=== PATIENT | female | born 1950 | race Caucasian/White ===

== ENCOUNTER 2018-03-27 16:22 | Outpatient (CLI) | payer MEDICARE | END 2018-03-27 16:23 | disposition home or self-care (01) | LOC: BICRAD 16:22 | PROVIDERS: ATTEND Internal Medicine Hematology & Oncology | DX: J90 Pleural effusion, not elsewhere classified (principal); C50.112 Malignant neoplasm of central portion of left female breast; C78.01 Secondary malignant neoplasm of right lung; I70.0 Atherosclerosis of aorta; Z98.890 Other specified postprocedural states | CPT/HCPCS: 71046 ==

== ENCOUNTER 2018-04-03 08:00 | Outpatient (CLI) | payer MEDICARE ==
--- NOTE | 2018-04-03 12:06 | PET ---
WHOLE BODY PET CT: Date: 04/03/18 CLINICAL HISTORY: Breast and lung cancer. No prior imaging comparisons are available. TECHNIQUE: There is a slight increased degree of physiologic activity of the regional soft tissues, which somewh at diminishes physiologic uptake of radiotracer, although the exam is diagnostic. FINDINGS: There is diffuse abnormal hypermetabolic activity demonstrated within the neck, chest, abdomen, and p ryan. Patient demonstrates moderate to large bilateral pleural effusions, as well as wedge-shaped pa renchymal consolidation of the right lung, which may be on the basis of a postobstructive atelectasis . There is a hypermetabolic right hilar mass with a SUV of approximately 3.2. There is hypermetabolic right axillary adenopathy up to 7 SUV. Hypermetabolic activity likely related to adenopathy involves the anterior left aspect of the superior mediastinum with SUV of 2.9. There is bilateral hypermetabo lic activity of the ribs, notably of the left 3rd rib laterally and the posterior right 10th rib, as well as a small focus posterior to the posterior aspect of the left 9th rib. There are diffuse hyperm etabolic lesions of the spine involving the C6 region, as well as T12, L1, and L3, with SUV up to michael roximately 3.7. Hypermetabolic activity is seen anteriorly at the left pleural margin, as well as vag ue increased metabolic activity in a plaque-like configuration, small in volume, along the left major fissure. There is bilateral hilar and mediastinal adenopathy with SUV up to 2.6. Foci of increased m etabolic activity within opacity of the region of the right middle lobe measures up to approximately 3.2 SUV. There is a vague, nonspecific focus of mildly increased activity within the posterior segmen t of right hepatic lobe, too small to definitively characterize. There is borderline hypermetabolic l eft retrocrural adenopathy at SUV measurements of 2.5. There are foci of hypermetabolic activity with in osseous structures of the pelvis, most notably at the right acetabular region, 3.2 SUV, as well as involving the proximal left femur. There is evidence of prior left breast surgery. Diffuse vascular disease is present. There are coloni c diverticula. IVC filter is incidentally noted. IMPRESSION: Diffuse foci of hypermetabolic activity as described above, indicating disseminated metastatic diseas e. The primary source may involve the right hilar lesion with associated postobstructive atelectasis of the right lung. There are numerous hypermetabolic lesions involving the skeletal system, as well a s adenopathy. Equivocal finding is present within the posterior segment of right hepatic lobe as abov e. Recommend continued imaging follow-up. POS: [facility]
== END 2018-04-03 08:01 | disposition home or self-care (01) ==
LOC: PET 08:00
PROVIDERS: ATTEND Internal Medicine Hematology & Oncology
DX: C50.919 Malignant neoplasm of unspecified site of unspecified female breast (principal); C34.90 Malignant neoplasm of unspecified part of unspecified bronchus or lung; M89.9 Disorder of bone, unspecified; R59.0 Localized enlarged lymph nodes; J98.11 Atelectasis; R93.5 Abnormal findings on diagnostic imaging of other abdominal regions, including retroperitoneum; R93.8 Abnormal findings on diagnostic imaging of other specified body structures
CPT/HCPCS: 78815; A9552

== ENCOUNTER 2018-04-07 13:53 | Day surgery (SDC) | payer MEDICARE ==
[~2018-04-07 13:53] MED LIST: Gadobenate Dimeglumine 529 MG/1 ML (20ML VIAL) ONE
[2018-04-07] MEDS ORDERED: Lidocaine 1% (PF) 30 ML VIAL ONE (14:29)
--- NOTE | 2018-04-07 15:06 | RAD ---
CHEST ONE VIEW: History: Cardiac arrest. Comparison: 01-25-10 FINDINGS: Cardiac silhouette is magnified and partially obscured by left pleural fluid and basilar atelectasis. Mediastinum remains midline with aortic calcification. Patchy bibasilar infiltrates are present. No evidence of pneumothorax. Metallic clips over the left axilla. IMPRESSION: 1. Left pleural fluid with patchy bibasilar atelectasis. Cause is not apparent. 2. Atherosclerosis. POS: [facility]
[2018-04-07 15:57] LABS: BF Color Yellow; BF RBC Count - Manual 2040 /cumm; BF WBC/Nonhematics Ct. - Manua 2740 /cumm; Body Fluid Source THORACENTESIS FLD; Clarity Hazy (Clear); Tube # EDTA
[2018-04-07 16:01] LABS: Fluid, Triglycerides 30 mg/dL (Not Available); Pleural Fluid, Amylase Less than 30 U/L (Not Available); Pleural Fluid, Glucose 107 mg/dL; Pleural Fluid, LDH 149 U/L (Not Available); Pleural Fluid, Protein 3.4 g/dL
[2018-04-07 16:32] LABS: BF Segmented Neutrophils 2 %; Cell Count Non Hematic 6 %; Lymphocytes 92 %
--- NOTE | 2018-04-07 19:36 | OP ---
DATE OF SERVICE: 04/07/2018 PROCEDURE: Right thoracentesis. PREOPERATIVE DIAGNOSIS: Right pleural effusion. POSTOPERATIVE DIAGNOSIS: Right pleural effusion. ANESTHESIA: 1% lidocaine without epinephrine. DESCRIPTION OF PROCEDURE: The procedure was done in the day stay portion of the hospital. Informed consent was obtained prior to the procedure. The risks included bleeding, infection, and accidental lung puncture. The patient signed the consent form and agreed to proceed. Timeout was taken prior to the procedure. The patient was placed in the upright position. The right posterior hemothorax was cleansed with chl orhexidine and draped sterilely. After the entry site had been identified via ultrasound. The entry site was approximately at 5th-6th interspace at the midscapular line. After local anesthetic had bee n applied, a Ybnv-M-Hmdnegan catheter was placed in the pleural space and approximately 900 mL of amb er/dark colored pleural fluid was removed and sent for appropriate studies. The procedure was tolera shimon well and postoperative x-ray is pending.
--- NOTE | 2018-04-08 09:51 | MRI ---
BRAIN MRI WITH AND WITHOUT CONTRAST: Clinical history: Breast malignancy. Evaluate for metastasis. FINDINGS: There is no ventriculomegaly, mass effect, midline shift, or pathologic intraaxial enhancement. Minim al chronic microvascular ischemic disease is present. No intracranial hemorrhage or acute territorial infarction. Skull base flow voids are maintained. IMPRESSION: 1. No intracranial metastasis evident. 2. No acute intracranial abnormalities. POS: [facility]
== END 2018-04-07 15:29 | disposition home or self-care (01) ==
LOC: SDC/OP 13:53 → EDSTATUS 16:15
PROVIDERS: ATTEND Internal Medicine Critical Care Medicine
PROC: 0W993ZX Drainage of Right Pleural Cavity, Percutaneous Approach, Diagnostic (ICD-10-PCS; principal; 2018-04-07)
DX: C78.01 Secondary malignant neoplasm of right lung (principal); C50.112 Malignant neoplasm of central portion of left female breast; J91.0 Malignant pleural effusion; I10 Essential (primary) hypertension; F32.9 Major depressive disorder, single episode, unspecified; F17.210 Nicotine dependence, cigarettes, uncomplicated; Z88.5 Allergy status to narcotic agent; Z79.82 Long term (current) use of aspirin; Z79.899 Other long term (current) drug therapy; Z17.0 Estrogen receptor positive status [ER+]
CPT/HCPCS: 32554; 70553; 71045; 82150; 82945; 83615; 83986; 84157; 84478; 85060; 87070; 87116; 87205; 87206; 88112; 88305; 89051; A9579; J1642; J2001

== ENCOUNTER 2018-05-06 13:04 | Outpatient (CLI) | payer MEDICARE ==
--- NOTE | 2018-05-06 14:47 | RAD ---
PA AND LATERAL VIEWS CHEST: Date: 05/06/18 HISTORY: Dyspnea. Breast and lung cancer. FINDINGS: The heart size is normal. There are bilateral pleural effusions, right larger than left, with adjacen t consolidation/atelectatic change. No pneumothoraces are seen. There are postop changes in the left axilla. IMPRESSION: Bilateral pleural effusions, right larger than left. POS: [facility]
== END 2018-05-06 13:05 | disposition home or self-care (01) ==
LOC: RAD 13:04
PROVIDERS: ATTEND Internal Medicine Critical Care Medicine
DX: R06.00 Dyspnea, unspecified (principal); J90 Pleural effusion, not elsewhere classified
CPT/HCPCS: 71046

== ENCOUNTER 2018-06-11 13:41 | Outpatient (CLI) | payer MEDICARE ==
--- NOTE | 2018-06-11 14:00 | RAD ---
CHEST TWO VIEWS: HISTORY: Dyspnea. COMPARISON: 05/06/2018 FINDINGS: The cardiac silhouette is slightly obscured by bilateral pleural fluid and patchy bibasilar infiltrat es. The pulmonary vasculature remains engorged. The mediastinum is midline. No evidence of pneumot horax. Metallic clips overly the left axilla. IMPRESSION: Bilateral pleural fluid and other findings are stable. POS: [facility]
== END 2018-06-11 13:42 | disposition home or self-care (01) ==
LOC: RAD 13:41
PROVIDERS: ATTEND Internal Medicine Critical Care Medicine
DX: R06.00 Dyspnea, unspecified (principal)
CPT/HCPCS: 71046

== ENCOUNTER 2018-07-29 12:43 | Outpatient (CLI) | payer MEDICARE | END 2018-07-29 12:44 | disposition home or self-care (01) | LOC: CP 12:43 | PROVIDERS: ATTEND Internal Medicine Critical Care Medicine | DX: J44.9 Chronic obstructive pulmonary disease, unspecified (principal); R06.09 Other forms of dyspnea; J90 Pleural effusion, not elsewhere classified | CPT/HCPCS: 94060; 94727; 94729 ==

== ENCOUNTER 2018-09-15 14:54 | Outpatient (CLI) | payer MEDICARE ==
--- NOTE | 2018-09-15 16:34 | RAD ---
TWO VIEWS CHEST: DATE: 09/15/2018. COMPARISON: 06/30/2018. HISTORY: Shortness of breath. FINDINGS: Small/moderate bilateral pleural effusions are noted, right larger than left. Right pleural effusion is slightly smaller than on the prior examination and left pleural effusion is slightly larger than on the prior exam. There are postoperative clips overlying the left lung base and lateral aspect of the mid left hemithorax. There is no pneumothorax seen. Osseous structures are stable. IMPRESSION: Nonspecific persistent bilateral pleural effusions. This limits evaluation of lung bases. POS: [facility]
== END 2018-09-15 14:55 | disposition home or self-care (01) ==
LOC: RAD 14:54
PROVIDERS: ATTEND Internal Medicine Critical Care Medicine
DX: R06.00 Dyspnea, unspecified (principal); J90 Pleural effusion, not elsewhere classified
CPT/HCPCS: 71046

== ENCOUNTER 2018-09-19 08:20 | Outpatient (CLI) | payer MEDICARE ==
--- NOTE | 2018-09-19 14:58 | PET ---
PET SCAN WITH CT ATTENUATION CORRECTION: HISTORY: Breast cancer with lung and bone metastatic. Patient has undergone chemotherapy and radiation therapy in the past. COMPARISON: 04/03/18. TECHNIQUE: PET scanning with CT attenuation correction is performed from the base of the brain to the proximal t highs following the intravenous administration of 12.8 mCi F18-FDG. FINDINGS: HEAD/NECK: No abnormal FDG localization. CHEST: The previously noted mediastinal and hilar FDG avidity is no longer evident. On the CT used for atten uation correction, moderate bilateral pleural effusions are noted. There is opacification of both low er lobes. Consolidation of the middle lobe is essentially unchanged. The degree of hypermetabolic act ivity noted in the middle lobe, however, has significantly decreased. Minimal residual hypermetabolic activity in the right lower lobe is nonspecific given that the maximum SUV is 1.8. Abnormal FDG localization noted in the right axilla has resolved. ABDOMEN/PELVIS: No abnormal FDG localization. IVC filter is identified. OSSEOUS STRUCTURES: The previously noted multifocal hypermetabolic foci within the osseous structures are no longer seen. CT used for attenuation correction demonstrates multiple sclerotic lesions in the osseous structures suggesting treated metastatic deposits. IMPRESSION: Significant response to therapy. POS: [facility]
== END 2018-09-19 08:21 | disposition home or self-care (01) ==
LOC: PET 08:20
PROVIDERS: ATTEND Internal Medicine Hematology & Oncology
DX: C50.919 Malignant neoplasm of unspecified site of unspecified female breast (principal); C79.51 Secondary malignant neoplasm of bone; C78.00 Secondary malignant neoplasm of unspecified lung
CPT/HCPCS: 78815; A9552

== ENCOUNTER 2019-03-05 13:19 | Outpatient (CLI) | payer MEDICARE ==
--- NOTE | 2019-03-05 16:02 | RAD ---
2 VIEWS CHEST: Date: 03/05/19 COMPARISON: 09/15/18. HISTORY: Dyspnea. FINDINGS: 2 views of the chest show normal sized cardiomediastinal silhouette. There are small bilateral pleura l effusions with adjacent atelectasis. These are unchanged. IMPRESSION: Bilateral pleural effusions. POS: [facility]
== END 2019-03-05 13:20 | disposition home or self-care (01) ==
LOC: RAD 13:19
PROVIDERS: ATTEND Internal Medicine Critical Care Medicine
DX: R06.00 Dyspnea, unspecified (principal); J90 Pleural effusion, not elsewhere classified
CPT/HCPCS: 71046

== ENCOUNTER 2019-05-28 12:36 | Outpatient (CLI) | payer MEDICARE | END 2019-05-28 12:37 | disposition home or self-care (01) | LOC: ULT 12:36 | PROVIDERS: ATTEND Internal Medicine Hematology & Oncology | DX: C50.112 Malignant neoplasm of central portion of left female breast (principal); C78.01 Secondary malignant neoplasm of right lung; C79.51 Secondary malignant neoplasm of bone; I08.3 Combined rheumatic disorders of mitral, aortic and tricuspid valves | CPT/HCPCS: 93306 ==

== ENCOUNTER 2019-06-09 13:37 | Outpatient (CLI) | payer MEDICARE ==
--- NOTE | 2019-06-09 14:15 | RAD ---
CHEST TWO VIEW: 06/09/19 HISTORY: Dyspnea. COMPARISON: Radiograph 03/05/19. FINDINGS: Chronic layering effusions and scarring is similar. Left axillary surgical clips. No acute osseous a bnormality. The cardiac silhouette and mediastinal contours are similar. IMPRESSION: Chronic findings. No acute intrathoracic abnormality. POS: [facility]
== END 2019-06-09 13:38 | disposition home or self-care (01) ==
LOC: RAD 13:37
PROVIDERS: ATTEND Internal Medicine Critical Care Medicine
DX: R06.00 Dyspnea, unspecified (principal)
CPT/HCPCS: 71046

== ENCOUNTER 2019-06-30 13:01 | Outpatient (CLI) | payer MEDICARE ==
--- NOTE | 2019-06-30 14:11 | PET ---
PET CT SKULL TO MID THIGH: COMPARISON: 09/19/[address] HISTORY: Malignant neoplasm of central portion of left female breast. TECHNIQUE: A PET/CT was performed from the skull to the mid thigh after administration of 12.1 millicuries of F- 18 FDG. Evaluation was performed on a [employer] workstation. FINDINGS: NECK: No areas of hypermetabolic activity. CHEST: Bilateral pleural effusions remain. Interstitial prominence of each lung is similar appearing. No ne w hypermetabolic pulmonary parenchymal mass. ABDOMEN/PELVIS: No areas of hypermetabolic activity. SKELETON: Redemonstration of multifocal sclerotic lesions of the regional skeletal structures. There are subtle foci of mild increased metabolic activity involving low thoracic and lumbar vertebrae with maximum SUV of approximately 3.2 at the approximate T11 level involving vertebral body. This is not a signifi cant interval change from prior exam, where maximum SUV was approximately 2.7. At the vertebral body just inferiorly, there is borderline hypermetabolic lesion of 2.7 SUV, not significantly changed from 2.4 SUV on prior exam. . IMPRESSION: 1. Grossly stable exam with borderline to mild hypermetabolic osseous lesions of the lower thoracic/ lumbar spine, as above. 2. Redemonstration of bilateral pleural effusions with interstitial lung disease bilaterally. 3. Recommend continued imaging follow-up. Transcribed Date/Time: 06/30/2019 2:22 PM
== END 2019-06-30 13:02 | disposition home or self-care (01) ==
LOC: PET 13:01
PROVIDERS: ATTEND Internal Medicine Hematology & Oncology
DX: C50.112 Malignant neoplasm of central portion of left female breast (principal); C78.01 Secondary malignant neoplasm of right lung; C79.51 Secondary malignant neoplasm of bone; J90 Pleural effusion, not elsewhere classified; J84.9 Interstitial pulmonary disease, unspecified
CPT/HCPCS: 78815; A9552

== ENCOUNTER 2019-08-11 14:23 | Outpatient (CLI) | payer MEDICARE ==
--- NOTE | 2019-08-11 15:01 | RAD ---
EXAM: Chest 2 views: HISTORY: Dyspnea COMPARISON: 06/09/2019 FINDINGS: There is a normal-sized cardiomediastinal silhouette. There are small bilateral pleural effusions wit h adjacent atelectasis. The bones are unremarkable. IMPRESSION: Small bilateral pleural effusions.
== END 2019-08-11 14:24 | disposition home or self-care (01) ==
LOC: RAD 14:23
PROVIDERS: ATTEND Internal Medicine Critical Care Medicine
DX: R06.00 Dyspnea, unspecified (principal); J90 Pleural effusion, not elsewhere classified
CPT/HCPCS: 71046

== ENCOUNTER 2019-09-08 12:49 | Outpatient (CLI) | payer MEDICARE ==
--- NOTE | 2019-09-08 13:03 | RAD ---
EXAM: Chest 2 views: HISTORY: Dyspnea COMPARISON: 08/11/2019 FINDINGS: There is a normal-sized cardiomediastinal silhouette. There is a small stable bilateral pleural effus ions with adjacent atelectasis. Degenerative changes are seen in the spine. IMPRESSION: Bilateral pleural effusions with adjacent atelectasis
== END 2019-09-08 12:50 | disposition home or self-care (01) ==
LOC: RAD 12:49
PROVIDERS: ATTEND Internal Medicine Critical Care Medicine
DX: R06.00 Dyspnea, unspecified (principal); J90 Pleural effusion, not elsewhere classified; J98.11 Atelectasis
CPT/HCPCS: 71046

== ENCOUNTER 2019-11-02 13:07 | Outpatient (CLI) | payer MEDICARE ==
--- NOTE | 2019-11-02 14:28 | RAD ---
CHEST 2 VIEWS: Date: 11/02/2019 INDICATION: History of dyspnea. COMPARISON: Prior exam dated 09/08/2019. FINDINGS: Chronic lung changes are stable. Small bilateral pleural effusions persist. Heart size is normal. Bonita gical clips in left axillary region are stable appearing. Chronic osseous changes are stable. IMPRESSION: Stable exam. POS: [facility]
== END 2019-11-02 13:08 | disposition home or self-care (01) ==
LOC: RAD 13:07
PROVIDERS: ATTEND Internal Medicine Critical Care Medicine
DX: R06.00 Dyspnea, unspecified (principal)
CPT/HCPCS: 71046

== ENCOUNTER 2019-11-21 23:22 | Inpatient (IN) | payer MEDICARE ==
[2019-11-22] MEDS ORDERED: NS 0.9% w/ 40 MEQ KCL 1,000 ML IV SCH (01:30)
[2019-11-22 01:31] LABS: Bacteria/HPF None Seen HPF (None Seen); Bilirubin Negative (Negative); Blood, Urine Negative (Negative); Clarity Clear (Clear); Glucose, Urine (Dipstick) Normal (Negative); Leukocyte Negative Leu/uL (Negative); Nitrite Negative (Negative); Protein, Urine (Dipstick) 30 mg/dL (Neg-Trace); RBC/HPF 0-3 HPF (0-3); Squamous Epithelial 0-3 HPF (0-3); Urobilinogen Normal mg/dL (Less than 2); WBC/HPF 0-3 HPF (0-3)
[2019-11-22 02:45] VITALS: BMI 28.0
[2019-11-22] MEDS ORDERED: Acetaminophen 325 MG TAB PO PRN (05:30)
[2019-11-22 05:33] LABS: #Lymphocytes 0.2 thou/uL (1.20-3.40); #Monocytes 0.2 thou/uL (0.11-0.59); #Neutrophils 2.4 thou/uL (1.40-6.50); %Basophils 0.3 % (0.0-1.0); %Eosinophils 0.8 % (0.0-10.0); %Lymphocytes 7.4 % (21.0-51.0); %Monocytes 5.9 % (0.0-10.0); %Neutrophils 85.7 % (42.0-75.0); Hemoglobin 9.4 g/dL (12.0-16.0); Mean Corpuscular HGB CONC 34.5 g/dL (32.0-36.0); Mean Corpuscular Hemoglobin 36.6 pg (27.0-31.0); Mean Platelet Volume 8.5 fL (7.4-10.4); Platelet Count 100 thou/uL (130-400); RBC Distribution Width 10.8 % (11.5-14.5); Red Blood Cell (RBC) Count 2.57 mill/uL (4.20-5.40); White Blood Cell (WBC) Count 2.8 thou/uL (4.8-10.8)
[2019-11-22 05:49] LABS: Anion Gap 16 mmol/L (10-20); BUN (Urea Nitrogen) 20 mg/dL (9.8-20.1); Calc. Creatinine Clearance 60 mL/min (70-130); Carbon Dioxide 25 mmol/L (23-31); Chloride 103 mmol/L (98-107); Estimated GFR-MDRD 53; Glucose 79 mg/dL (80-115); Magnesium 1.2 mg/dL (1.6-2.6); Potassium 3.6 mmol/L (3.5-5.1); Sodium 140 mmol/L (136-145)
[2019-11-22] MEDS ORDERED: Magnesium Sulfate 4 GM in Sodium Chloride 0.9% 250 ML 250 ML IVPB SCH (06:00)
--- NOTE | 2019-11-22 08:50 | HP ---
PRIMARY CARE PROVIDER: Dr. Waddell, whom she has been advised as moved. The patient has developed respiratory distress over the past 48 hours. She stated she felt like she was dying. She had a temperature of a 101.8 yesterday morning. She has had chills, sweats with present illness. She notes she had a rash with Levaquin when it was given in the [facility]. She has had positive cough, positive wheezing. PAST MEDICAL HISTORY: Breast cancer diagnosed in 1998, had surgery at that time. She was diagnosed with mets in 2018, is on chemotherapy. She has chronic obstructive pulmonary disease, hypertension, elevated cholesterol, gastroesophageal reflux disease. CURRENT MEDICATIONS: 1. Aspirin 81 mg a day. 2. Omeprazole 40 mg a day. 3. Norvasc 10 mg a day. 4. Ibrance 125 mg a day. 5. Pravachol 40 mg a day. ALLERGIES: CODEINE AND LEVAQUIN, BOTH CAUSED RASH. PAST SURGICAL HISTORY: Inferior vena cava filter in 1998 for deep vein thrombosis, breast cancer surgery on the left breast in 1998. She has had an infertility surgery. FAMILY HISTORY: Negative for breast cancer, coronary artery disease. Her maternal grandmother of an [place]. SOCIAL HISTORY: The patient is . Her son, Derek Cruz who is located in [place], is next of kin. She is DNAR. She smoked for 54 years, quit one year ago. She drinks "lots of vodka" at least one pint a day. REVIEW OF SYSTEMS: CONSTITUTIONAL: No headaches, dizziness, fainting. EYES: No double vision, blurred vision, or flashing lights. EAR, NOSE, AND THROAT: No ear pain or drainage. No nose bleeding. No trouble swallowing. CARDIAC: No chest pain, orthopnea, or paroxysmal nocturnal dyspnea. RESPIRATIONS: Marked shortness of breath, wheezing. Positive cough, nonproductive. GASTROINTESTINAL: No nausea, vomiting, diarrhea, or constipation. GENITOURINARY: No hematuria, dysuria, nocturia. MUSCULOSKELETAL: No pain or swelling in her arms or legs. NEUROLOGICAL: No strokes, seizures, or focal weakness. PSYCHIATRIC: She has anxiety and depression issues, takes Zoloft. SKIN: No bruising, bleeding, or rash. HEME/LYMPH: No tender or swollen lymph nodes in axilla, inguinal, or cervical area. PHYSICAL EXAMINATION: GENERAL: She is alert, pleasant, cooperative lady. VITAL SIGNS: Temperature in the hospital 98.1, pulse 108, respirations 18 to 20, O2 saturation 91 on 3 L nasal cannula, blood pressure 100/63. HEAD, EYES, EARS, NOSE, AND THROAT: Revealed pupils equal and round. Extraocular movements are intact. Sclerae are white. Tympanic membranes clear. Nose is clear. Oral mucous membranes are dry. Dental hygiene is adequate. CHEST: Hyper-resonant, bilateral basilar rales, worse on the right than the left. No wheezing. Some mild coarse breath sounds. HEART: Regular rate and rhythm. Hyperdynamic. S1, S2 present. No murmurs noted. ABDOMEN: Soft. Bowel sounds are normal. There is no hepatosplenomegaly. No mass. No rebound. EXTREMITIES: Reveal no cyanosis, clubbing, or edema. PULSES: Carotid, radial, femoral, dorsalis pedis pulses symmetric. SKIN: Warm and dry without bruises or rash. HEME/LYMPH: No tender or swollen lymph nodes in axilla, inguinal, or cervical area. NEUROLOGICAL: Cranial nerves 2-12 grossly intact. Moves all extremities. LABORATORY DATA: Chest x-ray bilateral small effusions, hyperinflation consistent with COPD. I personally reviewed CT scan, evidence of right lower lobe pneumonia in addition to what is seen on the chest x-ray. EKG; none presented. LABORATORY: Basic metabolic profile normal except for blood sugar of 79. CBC: White count 2.8, hemoglobin 9.4, platelet count 100. These were done at [place]. Laboratory done in [place]. Liver function tests normal. Initially elevated creatinine 1.31, which was down to 1.03 now. Lactic acid normal. ADMITTING DIAGNOSES: 1. Right lower lobe pneumonia. 2. Bilateral pleural effusions. 3. Pancytopenia. 4. Breast cancer, on chemotherapy. 5. Chronic obstructive pulmonary disease. 6. Hypertension. CODE STATUS: DNAR. No local person to confirm with, the patient is, however, alert and oriented. Job ID: [id number]
[2019-11-22] MEDS ORDERED: Ondansetron ODT 4 MG TAB PO PRN (09:24)
[2019-11-22] MEDS ORDERED: Zolpidem Tartrate 5 MG TAB PO PRN (09:24)
[2019-11-22] MEDS ORDERED: Gentamicin 80 MG/2 ML VIAL IVPB SCH (09:24)
[2019-11-22] MEDS: Gentamicin Sulfate 300 MG in Sodium Chloride 0.9% 100 ML IVPB SCH ×2 (10:18→14:13)
[2019-11-22] MEDS: Acetaminophen 325 MG TAB PO PRN ×2 (10:34→18:07)
[2019-11-22] MEDS: Lorazepam 2 MG/ML VIAL SLOW IVP PRN ×2 (14:54→21:01)
[2019-11-22] MEDS: Cefepime 2 GM in Sodium Chloride 0.9% 100 ML IVPB SCH ×2 (15:00→23:21)
[2019-11-22] MEDS: Azithromycin 500 MG in Sodium Chloride 0.9% 250 ML 250 ML IVPB SCH (15:41)
[2019-11-22] MEDS: Multivitamins, Adult 10 ML, Folic Acid 1 MG, Thiamine HCl 100 MG in Dextrose 5 %-0.45 %... IV SCH (15:46)
--- NOTE | 2019-11-22 19:46 | CON ---
DATE OF CONSULTATION: 11/22/2019 REASON FOR CONSULTATION: Shortness of breath and pneumonia. HISTORY OF PRESENT ILLNESS: Galen is a 69-year-old who is well known to me from previous office visits. She was admitted to the hospital earlier today with a 3-day history of cough, congestion, and fever. This morning, she was noted to have a fever of 101.8. PAST MEDICAL HISTORY: 1. Alcoholism, currently drinking vodka heavily. 2. Breast cancer. 3. COPD. 4. Hypertension. 5. Elevated lipids. 6. Gastroesophageal reflux. PAST SURGICAL HISTORY: 1. IVC filter placement. 2. Left mastectomy. MEDICATIONS: 1. Aspirin. 2. Omeprazole. 3. Norvasc. 4. Ibrance. 5. Pravachol. 6. She has also intermittently been on steroids. She is also on nebulization treatments. FAMILY MEDICAL HISTORY: Remarkable for heart disease. SOCIAL HISTORY: She quit smoking about a year ago after smoking for 54 years. She drinks one pint of vodka per day. She is . REVIEW OF SYSTEMS: Remarkable for fever, lethargy, chills, nausea. No hemoptysis, melena, hematochezia, hematuria, or dysuria. PHYSICAL EXAMINATION: VITAL SIGNS: Temperature 98, pulse 95, respirations 18, O2 saturation 96% on 3 L, and blood pressure 109/51. GENERAL: The patient is sitting up, awake, alert, and in no distress. HEENT: Unremarkable. NECK: No adenopathy or JVD. LUNGS: She has crackles in both bases. CARDIAC: S1 and S2. Regular. ABDOMEN: Soft, nontender. EXTREMITIES: No edema. LABORATORY DATA: Sodium 140, potassium 3.6, chloride 103, CO2 of 25, BUN 20, creatinine 1.0, glucose 79. White count 2.8, hematocrit 27.3, and platelet count 100. DIAGNOSTIC DATA: CT of the chest shows interstitial changes bilaterally, she has small bilateral effusions, left greater than right. ASSESSMENT: 1. Pneumonitis. 2. Rule out influenza. 3. Chronic obstructive pulmonary disease with exacerbation. 4. History of breast cancer with effusions from that. PLAN: 1. I would check a flu swab. 2. Empirically start steroids as she has been on that multiple times in the past year. 3. Agree with azithromycin and cefepime. 4. Nebulization treatments. 5. DT precautions as she drinks alcohol quite heavily. Job ID: [id number]
[2019-11-22] MEDS: Atorvastatin Calcium 10 MG TAB PO SCH (20:59)
[2019-11-22] MEDS ORDERED: predniSONE 20 MG TAB PO SCH (21:00)
[2019-11-23 05:49] LABS: #Lymphocytes 0.1 thou/uL (1.20-3.40); #Monocytes 0.1 thou/uL (0.11-0.59); #Neutrophils 2.8 thou/uL (1.40-6.50); %Basophils 0.4 % (0.0-1.0); %Eosinophils 0.2 % (0.0-10.0); %Lymphocytes 3.1 % (21.0-51.0); %Neutrophils 94.4 % (42.0-75.0); Hemoglobin 9.3 g/dL (12.0-16.0); Mean Corpuscular Hemoglobin 34.8 pg (27.0-31.0); Mean Platelet Volume 8.5 fL (7.4-10.4); Platelet Count 108 thou/uL (130-400); Red Blood Cell (RBC) Count 2.67 mill/uL (4.20-5.40); White Blood Cell (WBC) Count 2.9 thou/uL (4.8-10.8)
[2019-11-23 06:11] LABS: Anion Gap 14 mmol/L (10-20); BUN (Urea Nitrogen) 12 mg/dL (9.8-20.1); Calc. Creatinine Clearance 85 mL/min (70-130); Calcium 7.8 mg/dL (7.8-10.44); Carbon Dioxide 24 mmol/L (23-31); Chloride 106 mmol/L (98-107); Estimated GFR-MDRD 80; Glucose 126 mg/dL (80-115); Potassium 4.8 mmol/L (3.5-5.1); Sodium 139 mmol/L (136-145)
[2019-11-23] MEDS ORDERED: Palbociclib [Ibrance] 125 MG PO SCH (09:00)
--- NOTE | 2019-11-23 09:32 | PRG ---
DATE OF SERVICE: 11/23/2019 SUBJECTIVE: The patient is feeling better. She is not very happy about being in the hospital. OBJECTIVE: VITAL SIGNS: Temperature is 97.4, pulse 109, respirations 20, O2 saturation in the low 90s on 4 L, and blood pressure 95/60. HEENT: Unremarkable. NECK: No adenopathy or JVD. CHEST: Slightly diminished breath sounds at the bases. No wheezing. CARDIAC: S1 and S2. Regular. ABDOMEN: Soft. EXTREMITIES: No edema. LABORATORY DATA: White blood cell count 2.9, hematocrit 29, and platelet count 109. Sodium 139, potassium 4.8, chloride 106, CO2 of 12, creatinine 0.7, and glucose 126. ASSESSMENT: 1. Chronic obstructive pulmonary disease with exacerbation. 2. Pneumonitis. 3. History of breast cancers with small effusions from that. 4. Alcoholism. PLAN: Continue current supportive care. I will go ahead and reduce her steroid dose. I will also add some oral thiamine. Job ID: [id number]
[2019-11-23] MEDS: Aspirin 81 mg Enteric Coated Tablet PO SCH (09:33)
[2019-11-23] MEDS: predniSONE 20 MG TAB PO SCH ×2 (09:33→21:05)
[2019-11-23] MEDS: Amlodipine 5 MG TAB PO SCH (09:34)
[2019-11-23] MEDS: Multivitamins, Adult 10 ML, Folic Acid 1 MG, Thiamine HCl 100 MG in Dextrose 5 %-0.45 %... IV SCH (10:09)
[2019-11-23] MEDS: Cefepime 2 GM in Sodium Chloride 0.9% 100 ML IVPB SCH ×2 (10:10→23:33)
[2019-11-23] MEDS: Thiamine 100 MG TAB PO SCH (10:10)
[2019-11-23] MEDS: Acetaminophen 325 MG TAB PO PRN (10:10)
[2019-11-23] MEDS: Azithromycin 500 MG in Sodium Chloride 0.9% 250 ML 250 ML IVPB SCH (10:10)
[2019-11-23] MEDS: Lorazepam 2 MG/ML VIAL SLOW IVP PRN (10:11)
--- NOTE | 2019-11-23 11:29 | PDOC.HOSPP ---
- Subjective Encounter Date: 11/23/19 Encounter Time: 11:26 Subjective: still has cough, sob. got anxious last nite, resolved with iv ativan - Objective Vital Signs & Weight: Vital Signs (12 hours) Temp Pulse Resp BP BP BP Pulse Ox 11/23/19 09:34 107 H 11/23/19 08:00 95/60 90 L 11/23/19 07:34 97.4 F L 109 H 20 95/60 90 L 11/23/19 07:15 99 22 H 91 L 11/23/19 04:00 98.0 F 88 20 107/72 92 L 11/23/19 00:17 97 16 11/23/19 00:00 98.0 F 93 20 110/67 92 L Weight Weight 158 lb 11.725 oz I&O: 11/22/19 11/23/19 11/24/19 06:59 06:59 06:59 Intake Total 900 1000 Balance 900 1000 Result Diagrams: 11/23/19 05:20 11/23/19 05:20 Hospitalist ROS - Medication Medications: Active Medications Generic Name Dose Route Start Last Admin Trade Name Freq PRN Reason Stop Dose Admin Acetaminophen 650 mg 11/22/19 09:24 11/23/19 10:10 Tylenol PO 650 mg Q4H PRN Administration Headache/Fever/Mild Pain (1-3) Albuterol/Ipratropium 3 ml 11/22/19 13:00 11/23/19 07:15 Duoneb NEB 3 ml [id number] LYNDSAY Administration Amlodipine Besylate 5 mg 11/23/19 09:00 11/23/19 09:34 Norvasc PO 5 mg DAILY LYNDSAY Administration Aspirin 81 mg 11/23/19 09:00 11/23/19 09:33 Ecotrin PO 81 mg DAILY LYNDSAY Administration Atorvastatin Calcium 10 mg 11/22/19 21:00 11/22/19 20:59 Lipitor PO 10 mg HS LYNDSAY Administration Multivitamins 10 ml/ Folic 1,011.2 mls @ 250 mls/hr 11/22/19 09:00 11/23/19 10:09 Acid 1 mg/ Thiamine HCl 100 mg IV 1,011.2 mls / Dextrose/Sodium Chloride 0900 LYNDSAY Administration Azithromycin 500 mg/ Sodium 250 mls @ 250 mls/hr 11/22/19 12:00 11/23/19 10: 10 Chloride IVPB 250 mls Q24HR LYNDSAY Administration Cefepime HCl 2 gm/ Sodium 100 mls @ 200 mls/hr 11/22/19 11:00 11/23/19 10:10 Chloride IVPB 100 mls 1100,2300 LYNDSAY Administration Lorazepam 1 mg 11/22/19 14:37 11/23/19 10:11 Ativan SLOW IVP 1 mg Q4H PRN Administration Anxiety/Agitation Pantoprazole Sodium 40 mg 11/23/19 09:00 11/23/19 09:34 Protonix PO 40 mg DAILY LYNDSAY Administration Prednisone 20 mg 11/23/19 09:00 11/23/19 09:33 Prednisone PO 20 mg BID LYNDSAY Administration Sertraline HCl 100 mg 11/23/19 09:00 11/23/19 09:34 Zoloft PO 100 mg DAILY LYNDSAY Administration Thiamine HCl 100 mg 11/23/19 09:00 11/23/19 10:10 Thiamine PO 100 mg DAILY LYNDSAY Administration - Exam General Appearance: awake alert Neck: no JVD Heart: RRR, no murmur Respiratory - other findings: decreased BS, basilar rales, wheezes Gastrointestinal: soft, non-tender, normal bowel sounds Extremities: no edema Hosp A/P (1) PNA (pneumonia) Code(s): J18.9 - PNEUMONIA, UNSPECIFIED ORGANISM Status: Acute Qualifiers: Pneumonia type: due to unspecified organism Laterality: right Lung location: lower lobe of lung Qualified Code(s): J18.9 - Pneumonia, unspecified organism (2) Pleural effusion, bilateral Code(s): J90 - PLEURAL EFFUSION, NOT ELSEWHERE CLASSIFIED Status: Acute (3) COPD exacerbation Code(s): J44.1 - CHRONIC OBSTRUCTIVE PULMONARY DISEASE W (ACUTE) EXACERBATION Status: Acute (4) Pancytopenia due to chemotherapy Code(s): D61.810 - ANTINEOPLASTIC CHEMOTHERAPY INDUCED PANCYTOPENIA Status: Acute (5) Alcohol withdrawal Code(s): F10.239 - ALCOHOL DEPENDENCE WITH WITHDRAWAL, UNSPECIFIED Status: Acute Qualifiers: Complication of substance-induced condition: uncomplicated Qualified Code(s ): F10.230 - Alcohol dependence with withdrawal, uncomplicated - Plan cont nebs, steroids, antix cont banana bag, prn iv ativan start ativan 0.5 mg tid
[2019-11-23] MEDS: Gentamicin Sulfate 300 MG in Sodium Chloride 0.9% 100 ML IVPB SCH (15:03)
[2019-11-23] MEDS: Lorazepam 0.5 MG TAB PO SCH ×2 (15:06→21:05)
[2019-11-23] MEDS: Atorvastatin Calcium 10 MG TAB PO SCH (21:05)
[2019-11-24] MEDS: Acetaminophen 325 MG TAB PO PRN ×3 (00:58→19:59)
--- NOTE | 2019-11-24 08:43 | PRG ---
DATE OF SERVICE: 11/24/2019 SUBJECTIVE: Ms. Aaron feels better, had no acute complaints. OBJECTIVE: VITAL SIGNS: Temperature 97.5, pulse 104, respirations 18, O2 saturation 98% on 4 L, blood pressure 124/81. HEENT: Unremarkable. NECK: No JVD. LUNGS: Diminished breath sounds at bases. No wheezes. CARDIAC: S1, S2 regular. ABDOMEN: Soft. EXTREMITIES: No edema. LABORATORY DATA: No labs were obtained today. ASSESSMENT: 1. Pneumonia. 2. Chronic obstructive pulmonary disease exacerbation. PLAN: She is safe to convert over to oral medications. I would assume she could probably go home tomorrow if she is doing well. Job ID: [id number]
[2019-11-24] MEDS: Aspirin 81 mg Enteric Coated Tablet PO SCH (08:48)
[2019-11-24] MEDS: Thiamine 100 MG TAB PO SCH (08:48)
[2019-11-24] MEDS: predniSONE 20 MG TAB PO SCH ×2 (08:49→19:57)
[2019-11-24] MEDS: Lorazepam 0.5 MG TAB PO SCH ×3 (08:57→19:57)
[2019-11-24] MEDS: Cefdinir 300 MG CAP PO SCH (08:57)
[2019-11-24] MEDS: Azithromycin 250 MG TAB PO SCH (08:57)
[2019-11-24] MEDS: Amlodipine 5 MG TAB PO SCH (08:57)
[2019-11-24] MEDS: Multivitamins, Adult 10 ML, Folic Acid 1 MG, Thiamine HCl 100 MG in Dextrose 5 %-0.45 %... IV SCH (10:06)
--- NOTE | 2019-11-24 10:13 | EKG ---
Test Reason : Blood Pressure : / mmHG Vent. Rate : 095 BPM Atrial Rate : 095 BPM P-R Int : 110 ms QRS Dur : 084 ms QT Int : 372 ms P-R-T Axes : -01 040 052 degrees QTc Int : 467 ms Sinus rhythm with short MI Nonspecific ST abnormality Abnormal ECG Confirmed by FREDI OCONNELL ([id number]) on 11/24/2019 10:13:21 AM Referred By: YVES PRIETO Confirmed By:FREDI OCONNELL
--- NOTE | 2019-11-24 11:00 | PDOC.HOSPP ---
- Subjective Encounter Date: 11/24/19 Encounter Time: 10:56 Subjective: still has dry cough, OW doing well - Objective Vital Signs & Weight: Vital Signs (12 hours) Temp Pulse Resp BP BP BP Pulse Ox 11/24/19 08:57 104 H 11/24/19 08:00 97.5 F L 104 H 18 124/81 124/81 90 L 11/24/19 06:45 93 16 92 L 11/24/19 04:00 97.7 F 98 20 112/71 92 L 11/24/19 00:08 100 16 11/23/19 23:42 97.7 F 93 20 110/72 94 L Weight Admit Weight 158 lb Weight 158 lb 11.725 oz I&O: 11/23/19 11/24/19 11/25/19 06:59 06:59 06:59 Intake Total 1000 240 Balance 1000 240 Result Diagrams: 11/23/19 05:20 11/23/19 05:20 Additional Labs: Accuchecks 11/24/19 11/23/19 05:48 19:39 POC Glucose 125 H 129 H Hospitalist ROS - Medication Medications: Active Medications Generic Name Dose Route Start Last Admin Trade Name Freq PRN Reason Stop Dose Admin Acetaminophen 650 mg 11/22/19 09:24 11/24/19 10:15 Tylenol PO 650 mg Q4H PRN Administration Headache/Fever/Mild Pain (1-3) Albuterol/Ipratropium 3 ml 11/22/19 13:00 11/24/19 06:45 Duoneb NEB 3 ml [id number] LYNDSAY Administration Amlodipine Besylate 5 mg 11/23/19 09:00 11/24/19 08:57 Norvasc PO 5 mg DAILY LYNDSAY Administration Aspirin 81 mg 11/23/19 09:00 11/24/19 08:48 Ecotrin PO 81 mg DAILY LYNDSAY Administration Atorvastatin Calcium 10 mg 11/22/19 21:00 11/23/19 21:05 Lipitor PO 10 mg HS LYNDSAY Administration Azithromycin 250 mg 11/24/19 09:00 11/24/19 08:57 Zithromax PO 11/27/19 09:01 250 mg DAILY LYNDSAY Administration Cefdinir 600 mg 11/24/19 09:00 11/24/19 08:57 Omnicef PO 600 mg DAILY LYNDSAY Administration Multivitamins 10 ml/ Folic 1,011.2 mls @ 250 mls/hr 11/22/19 09:00 11/24/19 10:06 Acid 1 mg/ Thiamine HCl 100 mg IV 1,011.2 mls / Dextrose/Sodium Chloride 0900 LYNDSAY Administration Gentamicin Sulfate 300 mg/ 107.5 mls @ 107.5 mls/hr 11/23/19 14:00 11/23/19 15:03 Sodium Chloride IVPB 107.5 mls 1400 LYNDSAY Administration Lorazepam 1 mg 11/22/19 14:37 11/23/19 10:11 Ativan SLOW IVP 1 mg Q4H PRN Administration Anxiety/Agitation Lorazepam 0.5 mg 11/23/19 15:00 11/24/19 08:57 Ativan PO 0.5 mg TID LYNDSAY Administration Pantoprazole Sodium 40 mg 11/23/19 09:00 11/24/19 08:48 Protonix PO 40 mg DAILY LYNDSAY Administration Prednisone 20 mg 11/23/19 09:00 11/24/19 08:49 Prednisone PO 20 mg BID LYNDSAY Administration Sertraline HCl 100 mg 11/23/19 09:00 11/24/19 08:48 Zoloft PO 100 mg DAILY LYNDSAY Administration Sodium Chloride 10 ml 11/23/19 21:00 11/24/19 08:50 Flush - Normal Saline IVF 10 ml Q12HR LYNDSAY Administration Thiamine HCl 100 mg 11/23/19 09:00 11/24/19 08:48 Thiamine PO 100 mg DAILY LYNDSAY Administration - Exam General Appearance: awake alert Neck: no JVD Heart: RRR, no murmur Respiratory - other findings: decreased BS, no focal findings Gastrointestinal: soft, non-tender, normal bowel sounds Extremities: no edema Hosp A/P (1) PNA (pneumonia) Code(s): J18.9 - PNEUMONIA, UNSPECIFIED ORGANISM Status: Acute Qualifiers: Pneumonia type: due to unspecified organism Laterality: right Lung location: lower lobe of lung Qualified Code(s): J18.9 - Pneumonia, unspecified organism (2) Pleural effusion, bilateral Code(s): J90 - PLEURAL EFFUSION, NOT ELSEWHERE CLASSIFIED Status: Acute (3) COPD exacerbation Code(s): J44.1 - CHRONIC OBSTRUCTIVE PULMONARY DISEASE W (ACUTE) EXACERBATION Status: Acute (4) Pancytopenia due to chemotherapy Code(s): D61.810 - ANTINEOPLASTIC CHEMOTHERAPY INDUCED PANCYTOPENIA Status: Acute (5) Alcohol withdrawal Code(s): F10.239 - ALCOHOL DEPENDENCE WITH WITHDRAWAL, UNSPECIFIED Status: Acute Qualifiers: Complication of substance-induced condition: uncomplicated Qualified Code(s ): F10.230 - Alcohol dependence with withdrawal, uncomplicated - Plan cont nebs, steroids, antix transition to po meds add mucolytihome 1-2 days
--- NOTE | 2019-11-24 15:57 | PQF ---
CLINICAL DOCUMENTATION IMPROVEMENT CLARIFICATION FORM: ICD-10 Updated PLEASE DO AN ADDENDUM TO THE PROGRESS NOTE WITH ANY DOCUMENTATION UPDATES OR ADDITIONS AND CARRY THROUGH TO DC SUMMARY. THANK YOU. DATE: 11/24/19 ATTN: DR. PRIETO Please exercise your independent, professional judgment in responding to the clarification form. Clinical indicators are provided on the bottom of this form for your review Please check appropriate box(s): [ ] Acute Respiratory Failure: [ ] with Hypoxia[ ] with Hypercapnia [ x Acute On Chronic Respiratory Failure: [ x] with Hypoxia [ ] with Hypercapnia [ ] Acute Respiratory Failure due to: (etiology) [ ] Chronic Respiratory Failure only [ ] with Hypoxia [ ] with Hypercapnia [ ] Hypoxia [ ] Other diagnosis [ ] Unable to determine In addition, please specify: Present on Admission (POA): [x ] Yes [ ] No [ ] Unable to determine For continuity of documentation, please document condition throughout progress notes and discharge summary. Thank You. CLINICAL INDICATORS - SIGNS / SYMPTOMS / LABS / RESULTS AND LOCATION IN MR ER NOTE: "USES AT HOME OXYGEN" "CRACKLES BOTH LUNG BASES" RISKS: H/O COPD (ER NOTE) CURRENT ADMIT FOR PNEUMONIA (ER NOTE) TREATMENT: DUONEBS (11/22-PRESENT) PREDISONE (11/23-PRESENT) SUPPLEMENTAL OXYGEN IV GENTAMYCIN (11/23-PRESENT) IV ZITHROMAX (11/22) IV MAXIPIME (11/22-11/23) PO ZITHROMAX X 4 DOSES (11/24-11/27) Acute Respiratory Failure: ABG pH < 7.35 or > 7.45; Decreased oxygen saturation (<90% room air or < 95% on oxygen); PCO2 > 50 mm Hg; PO2 < 60 mm Hg; Labored or rapid respirations ARDS: Dx Criteria [[place] ARDS]: Respiratory symptoms within one week of a known clinical insult (e.g. shock, infection, surgery, trauma) Bilateral opacities in CXR/Chest CT not due to CHF or fluid (This form is maintained as a part of the permanent medical record) 2014 [employer]. All Rights Reserved JUDITH [email or web address] Office: [phone] [facility]
[2019-11-24] MEDS: Gentamicin Sulfate 300 MG in Sodium Chloride 0.9% 100 ML IVPB SCH (16:23)
[2019-11-24] MEDS: Atorvastatin Calcium 10 MG TAB PO SCH (19:56)
[2019-11-25] MEDS: Acetaminophen 325 MG TAB PO PRN (02:23)
[2019-11-25] MEDS: Lorazepam 2 MG/ML VIAL SLOW IVP PRN (02:27)
[2019-11-25 07:31] VITALS: TEMP 97.7
[2019-11-25] MEDS: Azithromycin 250 MG TAB PO SCH (08:08)
[2019-11-25] MEDS: Amlodipine 5 MG TAB PO SCH (08:09)
[2019-11-25] MEDS: Cefdinir 300 MG CAP PO SCH (08:09)
[2019-11-25] MEDS: Lorazepam 0.5 MG TAB PO SCH (08:09)
[2019-11-25] MEDS: Thiamine 100 MG TAB PO SCH (08:09)
[2019-11-25] MEDS: predniSONE 20 MG TAB PO SCH (08:09)
[2019-11-25] MEDS: Aspirin 81 mg Enteric Coated Tablet PO SCH (08:09)
--- NOTE | 2019-11-25 08:58 | PRG ---
DATE OF SERVICE: 11/25/2019 SUBJECTIVE: She feels okay and wants to go home. OBJECTIVE: VITAL SIGNS: Temperature 97.7, pulse 97, respirations 20, O2 saturation 94%, and blood pressure 117/76. HEENT: Unremarkable. NECK: No adenopathy or JVD. LUNGS: Clear. CARDIAC: S1 and S2. Regular. ABDOMEN: Soft. EXTREMITIES: No edema. ASSESSMENT: 1. Chronic obstructive pulmonary disease with exacerbation. 2. Probable pneumonia. 3. Alcohol abuse. PLAN: The patient is safe for discharge. Should go home on a short course of steroids and complete 7 full days of antibiotics. Job ID: [id number]
--- NOTE | 2019-11-25 09:26 | DIS ---
DATE OF ADMISSION: 11/22/2019 DATE OF DISCHARGE: 11/25/2019 PRIMARY CARE PHYSICIAN: No PCP. DISPOSITION: She is discharged home. FINAL DIAGNOSES: Pneumonia bacterial unspecified organism,acute on chronic respiratory failure, bilateral pleural effusions, chronic obstructive pulmonary disease exacerbation, pancytopenia due to chemotherapy, alcohol withdrawal, breast cancer on chemotherapy, hypertension, dyslipidemia, and gastroesophageal reflux disease. ALLERGIES: TO CODEINE AND LEVAQUIN. CODE STATUS: DNR. DIET: As tolerated. PENDING AT TIME OF DISCHARGE: Cultures are no growth at 48 hours. HOSPITAL COURSE: The patient admitted to the Hospitalist Service through [facility]. She developed some respiratory distress, temperature 101.8. Chest x-ray revealed very small bilateral effusions, hyperinflation. CT scan was done for rule out pulmonary emboli, which revealed an evidence of early right lower lobe pneumonia. White count was 2.8, hemoglobin 9.4, and platelet count of 100. Lactic acid was normal. Because of risk of gram-negative pneumonia, etc., she was started on broad-spectrum antibiotics. She improved dramatically during her hospital stay from that standpoint; however, she did because of her alcohol consumption developed some withdrawal symptoms. She had initially been started on a banana bag. She was put on Ativan. She is currently doing well on Ativan 0.5 mg p.o. t.i.d. She is on thiamine and multivitamins. She was seen in consultation by Dr. Bonifacio Santiago, who considers her stable for discharge at this time. The patient's chest exam is clear. Vital signs are stable. She is afebrile. Situation has been discussed. She is very desirous of returning home. She has oxygen at home. Her PCP, Dr. Waddell is moved. She has been advised she needs to see PCP in 3 days if possible. She has also been told to keep her November appointment with Dr. Santiago. Job ID: [id number] [facility]
[2019-11-25] MEDS: Multivitamins, Adult 10 ML, Folic Acid 1 MG, Thiamine HCl 100 MG in Dextrose 5 %-0.45 %... IV SCH (09:35)
[2019-11-25 14:22] VITALS: BP 125/85
== END 2019-11-25 11:34 | disposition home or self-care (01) | DRG 193 ==
LOC: ERS 23:22 → T4-B 11-22 01:47
PROVIDERS: ADMIT Internal Medicine; ATTEND Internal Medicine
DX: J15.9 Unspecified bacterial pneumonia (principal); D61.810 Antineoplastic chemotherapy induced pancytopenia; J96.21 Acute and chronic respiratory failure with hypoxia; J44.1 Chronic obstructive pulmonary disease with (acute) exacerbation; J44.0 Chronic obstructive pulmonary disease with (acute) lower respiratory infection; F10.239 Alcohol dependence with withdrawal, unspecified; J91.0 Malignant pleural effusion; C79.51 Secondary malignant neoplasm of bone; C78.00 Secondary malignant neoplasm of unspecified lung; I10 Essential (primary) hypertension; E78.5 Hyperlipidemia, unspecified; K21.9 Gastro-esophageal reflux disease without esophagitis; R40.2362 Coma scale, best motor response, obeys commands, at arrival to emergency department; R40.2142 Coma scale, eyes open, spontaneous, at arrival to emergency department; R40.2252 Coma scale, best verbal response, oriented, at arrival to emergency department; Z88.5 Allergy status to narcotic agent; Z88.8 Allergy status to other drugs, medicaments and biological substances; Z66 Do not resuscitate; C50.919 Malignant neoplasm of unspecified site of unspecified female breast; Z90.12 Acquired absence of left breast and nipple; Z99.81 Dependence on supplemental oxygen
CPT/HCPCS: 36415; 36416; 80048; 80170; 81003; 81015; 83605; 83735; 85025; 87086; 87633; 87804; 93005; 93010; 94640; 96374; J0456; J0692; J1580; J2060; J3411; J3475; J3480; J3490; J7042; J7050; J7512; J7620

== ENCOUNTER 2020-03-23 12:05 | Outpatient (CLI) | payer MEDICARE ==
--- NOTE | 2020-03-23 12:17 | RAD ---
EXAM: Chest 2 views: HISTORY: Dyspnea COMPARISON: 07/24/2006 FINDINGS: There is a normal-sized cardiomediastinal silhouette. There are small bilateral pleural effusions. D egenerative changes are seen in the spine. IMPRESSION: Small bilateral pleural effusions
== END 2020-03-23 12:06 | disposition home or self-care (01) ==
LOC: BICRAD 12:05
PROVIDERS: ATTEND Internal Medicine Critical Care Medicine
DX: R06.00 Dyspnea, unspecified (principal); J90 Pleural effusion, not elsewhere classified
CPT/HCPCS: 71046

== ENCOUNTER 2020-04-14 09:20 | Outpatient (CLI) | payer MEDICARE ==
--- NOTE | 2020-04-14 11:22 | PET ---
PET W CT Skull to Mid Thigh History: Breast cancer with bone and lung metastasis. Comparison: PET/CT June 2019 Findings: PET CT from skull to mid thigh was performed after the intravenous ministration 13 mCi F-18 FDG. Overall the FDG avidity within the skeletal metastasis continues to decrease. For example the L2 scle rotic metastatic focus has SUV max of 1.92, previously 2.74. The T11 SUV max now only measures 2, previously 3.2. No new hyperbolic osseous metastatic disease. No new metastatic disease within the chest, abdomen nor pelvis. IVC filter is in place. Size decreasing pleural effusions. Pulmonary fibrosis. Round atelectasis left lung base. Background pulmonary emphysema. Postsurgical changes in the left breast. Cholelithiasis without cholecystitis. Collateral vessels from the femoral vein due to IVC filter congestion. No new suspicious non-FDG avid pulmonary nodule. Impression: Continued response to therapy with decreased FDG avidity within the osseous metastatic di sease. The FDG avidity is nearly background level with only sclerosis and remodeling from osseous response to healing metastasis remaining.
== END 2020-04-14 09:21 | disposition home or self-care (01) ==
LOC: PET 09:20
PROVIDERS: ATTEND Internal Medicine Hematology & Oncology
DX: C50.112 Malignant neoplasm of central portion of left female breast (principal); C79.51 Secondary malignant neoplasm of bone; C78.00 Secondary malignant neoplasm of unspecified lung
CPT/HCPCS: 78815; A9552

== ENCOUNTER 2020-07-01 15:13 | Outpatient (CLI) | payer MEDICARE ==
--- NOTE | 2020-07-01 15:49 | RAD ---
Exam: Right mandible 4 views HISTORY: Sores that are getting bigger and bigger on the bottom part of the left true. History of met astatic cancer FINDINGS: Visualized calvarium appears be intact. Symmetric aeration visualized paranasal sinuses and mastoid air cells No obvious lesions in the maxilla and mandible. There is concern, consider Panorex x-ray. Also consid er consultation with oral maxillofacial surgery/dentist. IMPRESSION: No radiographic abnormalities. Additional recommendations as above
== END 2020-07-01 15:14 | disposition home or self-care (01) ==
LOC: BICRAD 15:13
PROVIDERS: ATTEND Family Medicine
DX: K08.9 Disorder of teeth and supporting structures, unspecified (principal)
CPT/HCPCS: 70110

== ENCOUNTER 2020-12-02 08:45 | Outpatient (CLI) | payer MEDICARE | END 2020-12-02 08:46 | disposition home or self-care (01) | LOC: PET 08:45 | PROVIDERS: ATTEND Internal Medicine Hematology & Oncology | DX: C50.112 Malignant neoplasm of central portion of left female breast (principal); C78.01 Secondary malignant neoplasm of right lung; C79.51 Secondary malignant neoplasm of bone | CPT/HCPCS: 78815; A9552 ==

== ENCOUNTER → 2020-12-23 | Day surgery (SDC) | payer MEDICARE | LOC: SPEC 08:43 | PROVIDERS: ATTEND Internal Medicine Infectious Disease | PROC: 02HV33Z Insertion of Infusion Device into Superior Vena Cava, Percutaneous Approach (ICD-10-PCS; principal; 2020-12-23) | PROC: B548ZZA Ultrasonography of Superior Vena Cava, Guidance (ICD-10-PCS; 2020-12-23) | DX: M27.2 Inflammatory conditions of jaws (principal); Z88.1 Allergy status to other antibiotic agents; Z88.5 Allergy status to narcotic agent | CPT/HCPCS: 36569; C1751 ==

== ENCOUNTER 2021-02-09 12:57 | Outpatient (CLI) | payer MEDICARE | END 2021-02-09 12:58 | disposition home or self-care (01) | LOC: BICRAD 12:57 | PROVIDERS: ATTEND Nurse Practitioner Family | DX: R10.2 Pelvic and perineal pain (principal); M16.0 Bilateral primary osteoarthritis of hip; M47.816 Spondylosis without myelopathy or radiculopathy, lumbar region | CPT/HCPCS: 72100; 72190 ==

== ENCOUNTER 2021-03-30 09:42 | Outpatient (CLI) | payer MEDICARE | END 2021-03-30 09:43 | disposition home or self-care (01) | LOC: PET 09:42 | PROVIDERS: ATTEND Internal Medicine Hematology & Oncology | DX: C50.112 Malignant neoplasm of central portion of left female breast (principal); C78.01 Secondary malignant neoplasm of right lung; C79.51 Secondary malignant neoplasm of bone | CPT/HCPCS: 78815; A9552 ==

== ENCOUNTER 2021-06-27 09:50 | Outpatient (CLI) | payer MEDICARE | END 2021-06-27 09:51 | disposition home or self-care (01) | LOC: PET 09:50 | PROVIDERS: ATTEND Internal Medicine Hematology & Oncology | DX: C50.112 Malignant neoplasm of central portion of left female breast (principal); C78.01 Secondary malignant neoplasm of right lung; C79.51 Secondary malignant neoplasm of bone | CPT/HCPCS: 78815; A9552; 36415; 80053; 82248; 83615; 84100; 84550; 86300 ==

== ENCOUNTER 2021-07-10 12:05 | Outpatient (CLI) | payer MEDICARE | END 2021-07-10 12:06 | disposition home or self-care (01) | LOC: BICRAD 12:05 | PROVIDERS: ATTEND Internal Medicine Critical Care Medicine | DX: R06.00 Dyspnea, unspecified (principal) | CPT/HCPCS: 71046 ==

== ENCOUNTER 2021-10-12 10:24 | Inpatient (IN) | payer MEDICARE ==
[2021-10-12] MEDS ORDERED: Acetaminophen 500 MG TAB ONE (11:15)
[2021-10-12] MEDS ORDERED: Dexamethasone 10 MG/ML VIAL ONE (12:14)
[2021-10-12 14:51] LABS: Hemoglobin 8.7 g/dL (12.0-16.0); Mean Corpuscular HGB CONC 31.7 g/dL (32.0-36.0); Mean Corpuscular Hemoglobin 36.4 pg (27.0-31.0); RBC Distribution Width 16.1 % (11.5-14.5); Red Blood Cell (RBC) Count 2.39 mill/uL (4.20-5.40); White Blood Cell (WBC) Count 8.8 thou/uL (4.8-10.8)
[2021-10-12 15:05] LABS: ALT (SGPT) 55 U/L (8-55); Albumin 2.4 g/dL (3.4-4.8); Alkaline Phosphatase 2266 U/L (40-110); BUN (Urea Nitrogen) 70 mg/dL (9.8-20.1); Globulin 2.5 g/dL (2.4-3.5); Glucose 88 mg/dL (80-115)
[2021-10-12 15:11] LABS: Band 7 % (5-11); Eosinophils 1 % (0-10); Hypochromia SLIGHT = 6-15 cells (100X) (0-5/hpf); Lymphocytes 3 % (21-51); MDiff Complete? YES; Macrocytosis SLIGHT = 6-15 cells (100X) (0-5/hpf); Mean Platelet Volume 11.3 fL (7.4-10.4); Monocytes 4 % (0-10); Neutrophil 85 % (42-75); Platelet Count 110 thou/uL (130-400); Platelet Morphology Comment Appears Decreased; Polychromasia SLIGHT = 2-3 cells (100X) (0-2/hpf); Target Cells MODERATE= 6-15 cells (100X) (0-1/hpf)
[2021-10-12 15:26] LABS: Calcium 7.3 mg/dL (7.8-10.44); Chloride 97 mmol/L (98-107); Potassium 3.7 mmol/L (3.5-5.1); Sodium 137 mmol/L (136-145)
[2021-10-12 15:27] LABS: Anion Gap 20 mmol/L (10-20); Carbon Dioxide 24 mmol/L (23-31)
[2021-10-12 15:28] LABS: Bilirubin, Total 3.4 mg/dL (0.2-1.2)
[2021-10-12 15:29] LABS: Calc. Creatinine Clearance 0 mL/min (70-130)
[2021-10-12 15:31] LABS: AST (SGOT) 153 U/L (5-34)
[2021-10-12 17:37] LABS: Troponin I 0.028 ng/mL (< 0.028)
[2021-10-12 20:59] LABS: Troponin I 0.029 ng/mL (< 0.028)
[2021-10-12] MEDS ORDERED: Acetaminophen 500 MG TAB PO PRN (21:35)
[2021-10-12] MEDS ORDERED: Ondansetron PF 4 MG/2 ML Vial IVP PRN (21:35)
[2021-10-12] MEDS ORDERED: Heparin 5,000 UNITS/ML VIAL SC SCH (22:00)
[2021-10-12] MEDS ORDERED: ALPRAZolam 0.25 MG TAB ONE (22:23)
[2021-10-12] MEDS ORDERED: Albuterol 200 PUFF (6.7GM INHALER) INH PRN (22:29)
[2021-10-12] MEDS ORDERED: ALPRAZolam 0.5 MG TAB PO SCH (22:30)
[2021-10-12] MEDS: Sodium Chloride 0.9% 1,000 ML IV SCH (22:36)
[2021-10-13 05:32] LABS: Anion Gap 19 mmol/L (10-20); BUN (Urea Nitrogen) 74 mg/dL (9.8-20.1); Calc. Creatinine Clearance 0 mL/min (70-130); Calcium 7.4 mg/dL (7.8-10.44); Carbon Dioxide 24 mmol/L (23-31); Chloride 100 mmol/L (98-107); Glucose 99 mg/dL (80-115); Iron 33 ug/dL (50-170); Iron Binding Capacity, Total 85 mcg/dL (265-497); Sodium 139 mmol/L (136-145)
[2021-10-13 05:33] LABS: ALT (SGPT) 51 U/L (8-55); AST (SGOT) 131 U/L (5-34); Albumin 2.4 g/dL (3.4-4.8); Alkaline Phosphatase 2107 U/L (40-110); Bilirubin, Direct 2.2 mg/dL (0.1-0.3); Bilirubin, Total 2.8 mg/dL (0.2-1.2); Iron 33 ug/dL (50-170); Iron Binding Capacity, Total 85 mcg/dL (265-497); Protein, Total 4.9 g/dL (5.8-8.1)
[2021-10-13 06:47] LABS: #Basophils 0.1 thou/uL (0.0-0.2); #Lymphocytes 0.4 thou/uL (1.20-3.40); #Monocytes 0.8 thou/uL (0.11-0.59); %Basophils 1.1 % (0.0-1.0); %Eosinophils 0.3 % (0.0-10.0); %Neutrophils 83.7 % (42.0-75.0); Hemoglobin 8.6 g/dL (12.0-16.0); Mean Corpuscular HGB CONC 31.9 g/dL (32.0-36.0); Mean Corpuscular Hemoglobin 36.8 pg (27.0-31.0); Mean Platelet Volume 11.5 fL (7.4-10.4); Platelet Count 102 thou/uL (130-400); RBC Distribution Width 15.9 % (11.5-14.5); Red Blood Cell (RBC) Count 2.33 mill/uL (4.20-5.40); White Blood Cell (WBC) Count 8.4 thou/uL (4.8-10.8)
[2021-10-13 08:05] LABS: Band 5 % (5-11); Lymphocytes 4 % (21-51); MDiff Complete? YES; Macrocytosis MODERATE=16-30 cells (100X) (0-5/hpf); Monocytes 8 % (0-10); Myelocyte 1 % (0-0); Neutrophil 81 % (42-75); Nucleated RBC 1 % (0); Platelet Morphology Comment Appears Decreased; Polychromasia MODERATE = 3-4 cells (100X) (0-2/hpf); Reactive Lymphocytes 1 % (0-10); Target Cells MODERATE= 6-15 cells (100X) (0-1/hpf)
[2021-10-13] MEDS ORDERED: Famotidine 20 MG TAB ONE (09:06)
[2021-10-13] MEDS: Famotidine 20 MG TAB PO SCH (09:14)
[2021-10-13] MEDS: Albumin 25% 25 GM/100 ML BOT IVPB SCH (09:24)
[2021-10-13] MEDS: Sodium Chloride 0.9% 1,000 ML IV SCH (11:02)
[2021-10-13] MEDS ORDERED: Acetaminophen 500 MG TAB ONE (11:06)
[2021-10-13] MEDS: Heparin 5,000 UNITS/ML VIAL SC SCH ×3 (11:07→21:24)
[2021-10-13 17:56] LABS: Bacteria/HPF 4+ HPF (None Seen); Bilirubin Negative (Negative); Blood, Urine 1+ (Negative); Glucose, Urine (Dipstick) Normal (Negative); Ketone, Urine Negative (Negative); Leukocyte 250 Leu/uL (Negative); Nitrite Negative (Negative); Protein, Urine (Dipstick) 30 mg/dL (Neg-Trace); Specific Gravity, Urine 1.011 (1.002-1.036); Squamous Epithelial 0-3 HPF (0-3); WBC/HPF 21-50 HPF (0-3)
[2021-10-13 17:57] LABS: Clarity Cloudy (Clear)
[2021-10-13 17:59] LABS: Urine Culture Reflex Yes Yes
[2021-10-13 18:16] LABS: Creatinine, Urine 40.48 mg/dL (47-110)
[2021-10-13 20:43] VITALS: BMI 26.4
[2021-10-13] MEDS ORDERED: traMADol HCl 50 MG TAB PO SCH (21:15)
[2021-10-13 22:11] LABS: Anion Gap 22 mmol/L (10-20); BUN (Urea Nitrogen) 72 mg/dL (9.8-20.1); CK (CPK) 59 U/L (29-168); Calc. Creatinine Clearance 23 mL/min (70-130); Carbon Dioxide 22 mmol/L (23-31); Chloride 100 mmol/L (98-107); Glucose 111 mg/dL (80-115); Potassium 3.8 mmol/L (3.5-5.1); Sodium 140 mmol/L (136-145)
[2021-10-13] MEDS ORDERED: Lorazepam 0.5 MG TAB PO SCH (23:30)
[2021-10-14] MEDS: Albumin 25% 25 GM/100 ML BOT IVPB SCH (03:03)
[2021-10-14] MEDS ORDERED: Albumin 25% 25 GM/100 ML BOT IVPB SCH (04:30)
[2021-10-14] MEDS: Sodium Chloride 0.9% 1,000 ML IV SCH (04:34)
[2021-10-14 05:25] LABS: #Lymphocytes 0.6 thou/uL (1.20-3.40); #Monocytes 1.1 thou/uL (0.11-0.59); %Basophils 0.1 % (0.0-1.0); %Eosinophils 0.2 % (0.0-10.0); %Monocytes 14.4 % (0.0-10.0); %Neutrophils 77.2 % (42.0-75.0); Mean Corpuscular HGB CONC 31.5 g/dL (32.0-36.0); Mean Corpuscular Hemoglobin 36.9 pg (27.0-31.0); Mean Platelet Volume 11.1 fL (7.4-10.4); Platelet Count 129 thou/uL (130-400); Red Blood Cell (RBC) Count 2.42 mill/uL (4.20-5.40); White Blood Cell (WBC) Count 7.8 thou/uL (4.8-10.8)
[2021-10-14 05:49] LABS: ALT (SGPT) 50 U/L (8-55); AST (SGOT) 154 U/L (5-34); Albumin 3.3 g/dL (3.4-4.8); Alkaline Phosphatase 1922 U/L (40-110); Anion Gap 21 mmol/L (10-20); BUN (Urea Nitrogen) 66 mg/dL (9.8-20.1); Bilirubin, Direct 2.4 mg/dL (0.1-0.3); Calc. Creatinine Clearance 26 mL/min (70-130); Calcium 7.7 mg/dL (7.8-10.44); Carbon Dioxide 20 mmol/L (23-31); Chloride 101 mmol/L (98-107); Globulin 2.5 g/dL (2.4-3.5); Glucose 77 mg/dL (80-115); Potassium 3.3 mmol/L (3.5-5.1); Protein, Total 5.8 g/dL (5.8-8.1); Sodium 139 mmol/L (136-145)
[2021-10-14] MEDS: Lactated Ringer's 1,000 ML IV SCH ×2 (07:37→21:14)
[2021-10-14] MEDS ORDERED: Piperacillin/Tazobactam 3.375 GM in Sodium Chloride 0.9% 100 ML IVPB SCH ×2 (08:00→09:00)
[2021-10-14] MEDS: Heparin 5,000 UNITS/ML VIAL SC SCH ×3 (09:02→21:14)
[2021-10-14] MEDS: Famotidine 20 MG TAB PO SCH (09:02)
[2021-10-14 09:13] LABS: Phosphorus 3.6 mg/dL (2.3-4.7)
[2021-10-14 09:21] LABS: Magnesium 0.9 mg/dL (1.6-2.6)
[2021-10-14] MEDS: Magnesium 2 GM/50 ML 2 GM in Premix Bag 1 BAG IVPB SCH ×3 (11:16→14:11)
[2021-10-14] MEDS: EPOETIN ALFA-EPBX (ESRD) 10,000 UNIT/ML VIAL SC SCH (11:17)
[2021-10-14] MEDS: HYDROcodone/Acetaminophen 10/325 mg Tablet PO PRN (14:10)
[2021-10-14] MEDS: Piperacillin/Tazobactam 3.375 GM in Sodium Chloride 0.9% 100 ML IVPB SCH (21:14)
[2021-10-14] MEDS: Lorazepam 0.5 MG TAB PO SCH (22:22)
[2021-10-15] MEDS: HYDROcodone/Acetaminophen 10/325 mg Tablet PO PRN ×3 (04:06→20:47)
[2021-10-15 06:52] LABS: ALT (SGPT) 69 U/L (8-55); AST (SGOT) 241 U/L (5-34); Albumin 2.8 g/dL (3.4-4.8); Alkaline Phosphatase 1837 U/L (40-110); Anion Gap 17 mmol/L (10-20); BUN (Urea Nitrogen) 49 mg/dL (9.8-20.1); Calc. Creatinine Clearance 37 mL/min (70-130); Calcium 7.8 mg/dL (7.8-10.44); Carbon Dioxide 25 mmol/L (23-31); Chloride 101 mmol/L (98-107); Globulin 2.3 g/dL (2.4-3.5); Glucose 95 mg/dL (80-115); Protein, Total 5.1 g/dL (5.8-8.1); Sodium 140 mmol/L (136-145)
[2021-10-15 06:55] LABS: Potassium 2.8 mmol/L (3.5-5.1)
[2021-10-15] MEDS: Potassium Chloride 20 MEQ in Premix Bag 1 BAG IVPB SCH ×2 (08:46→12:38)
[2021-10-15] MEDS: Piperacillin/Tazobactam 3.375 GM in Sodium Chloride 0.9% 100 ML IVPB SCH ×2 (08:51→20:48)
[2021-10-15] MEDS: Potassium Chloride 20 MEQ TAB PO SCH ×2 (08:51→12:37)
[2021-10-15] MEDS: Heparin 5,000 UNITS/ML VIAL SC SCH ×3 (08:52→21:27)
[2021-10-15] MEDS: Lactated Ringer's 1,000 ML IV SCH ×2 (08:52→22:53)
[2021-10-15 10:11] LABS: Anisocytosis SLIGHT = 6-15 cells (100X) (0-5/hpf); Band 15 % (5-11); Hemoglobin 8.7 g/dL (12.0-16.0); Hypochromia SLIGHT = 6-15 cells (100X) (0-5/hpf); Large Platelets SLIGHT; Lymphocytes 1 % (21-51); MDiff Complete? YES; Macrocytosis MODERATE=16-30 cells (100X) (0-5/hpf); Mean Corpuscular HGB CONC 30.8 g/dL (32.0-36.0); Mean Corpuscular Hemoglobin 35.4 pg (27.0-31.0); Mean Platelet Volume 11.2 fL (7.4-10.4); Monocytes 10 % (0-10); Neutrophil 73 % (42-75); Platelet Count 109 thou/uL (130-400); Platelet Morphology Comment Appears Decreased; Polychromasia MODERATE = 3-4 cells (100X) (0-2/hpf); RBC Distribution Width 16.2 % (11.5-14.5); Reactive Lymphocytes 1 % (0-10); Red Blood Cell (RBC) Count 2.44 mill/uL (4.20-5.40); Stomatocytes SLIGHT = 2-5 cells (100X) (0-1/hpf); Target Cells MARKED = >16 cells (100X) (0-1/hpf); Tear Drops SLIGHT = 2-5 cells (100X) (0-1/hpf); White Blood Cell (WBC) Count 7.6 thou/uL (4.8-10.8)
[2021-10-15] MEDS: Lorazepam 0.5 MG TAB PO SCH (20:48)
[2021-10-15 22:34] LABS: Magnesium 1.6 mg/dL (1.6-2.6); Potassium 3.9 mmol/L (3.5-5.1)
[2021-10-16] MEDS: Piperacillin/Tazobactam 3.375 GM in Sodium Chloride 0.9% 100 ML IVPB SCH ×3 (08:27→20:42)
[2021-10-16] MEDS: Heparin 5,000 UNITS/ML VIAL SC SCH ×3 (08:28→20:41)
[2021-10-16 08:34] LABS: ALT (SGPT) 85 U/L (8-55); AST (SGOT) 249 U/L (5-34); Albumin 2.8 g/dL (3.4-4.8); Alkaline Phosphatase 2062 U/L (40-110); Anion Gap 17 mmol/L (10-20); BUN (Urea Nitrogen) 41 mg/dL (9.8-20.1); Calc. Creatinine Clearance 39 mL/min (70-130); Calcium 8.4 mg/dL (7.8-10.44); Carbon Dioxide 25 mmol/L (23-31); Chloride 106 mmol/L (98-107); Globulin 2.4 g/dL (2.4-3.5); Glucose 81 mg/dL (80-115); Potassium 4.1 mmol/L (3.5-5.1); Protein, Total 5.2 g/dL (5.8-8.1); Sodium 144 mmol/L (136-145)
[2021-10-16 08:39] LABS: Hemoglobin 9.5 g/dL (12.0-16.0); Mean Corpuscular HGB CONC 30.5 g/dL (32.0-36.0); Mean Corpuscular Hemoglobin 35.8 pg (27.0-31.0); Mean Platelet Volume 11.3 fL (7.4-10.4); Platelet Count 119 thou/uL (130-400); RBC Distribution Width 16.5 % (11.5-14.5); Red Blood Cell (RBC) Count 2.64 mill/uL (4.20-5.40); White Blood Cell (WBC) Count 10.7 thou/uL (4.8-10.8)
[2021-10-16 10:28] LABS: Band 12 % (5-11); Eosinophils 1 % (0-10); Lymphocytes 8 % (21-51); MDiff Complete? YES; Macrocytosis MODERATE=16-30 cells (100X) (0-5/hpf); Monocytes 16 % (0-10); Neutrophil 62 % (42-75); Platelet Morphology Comment Appears Decreased; Polychromasia MODERATE = 3-4 cells (100X) (0-2/hpf); Reactive Lymphocytes 1 % (0-10); Stomatocytes MODERATE= 6-15 cells (100X) (0-1/hpf); Target Cells MODERATE= 6-15 cells (100X) (0-1/hpf)
[2021-10-16] MEDS: Lactated Ringer's 1,000 ML IV SCH ×2 (13:21→14:21)
[2021-10-16] MEDS: Lorazepam 0.5 MG TAB PO SCH (20:41)
[2021-10-16] MEDS: HYDROcodone/Acetaminophen 10/325 mg Tablet PO PRN (20:50)
[2021-10-17] MEDS: Lactated Ringer's 1,000 ML IV SCH (03:00)
[2021-10-17] MEDS: Piperacillin/Tazobactam 3.375 GM in Sodium Chloride 0.9% 100 ML IVPB SCH ×3 (05:32→21:07)
[2021-10-17 07:39] LABS: ALT (SGPT) 63 U/L (8-55); AST (SGOT) 149 U/L (5-34); Albumin 2.5 g/dL (3.4-4.8); Alkaline Phosphatase 1894 U/L (40-110); Anion Gap 17 mmol/L (10-20); BUN (Urea Nitrogen) 34 mg/dL (9.8-20.1); Bilirubin, Total 3.3 mg/dL (0.2-1.2); Calc. Creatinine Clearance 42 mL/min (70-130); Calcium 8.3 mg/dL (7.8-10.44); Carbon Dioxide 25 mmol/L (23-31); Chloride 106 mmol/L (98-107); Globulin 2.2 g/dL (2.4-3.5); Glucose 77 mg/dL (80-115); Potassium 4.2 mmol/L (3.5-5.1); Protein, Total 4.7 g/dL (5.8-8.1); Sodium 144 mmol/L (136-145)
[2021-10-17] MEDS: Heparin 5,000 UNITS/ML VIAL SC SCH ×3 (08:34→21:08)
[2021-10-17] MEDS: HYDROcodone/Acetaminophen 10/325 mg Tablet PO PRN ×2 (08:55→21:05)
[2021-10-17 10:31] LABS: Band 15 % (5-11); Hypochromia SLIGHT = 6-15 cells (100X) (0-5/hpf); Lymphocytes 7 % (21-51); MDiff Complete? YES; Macrocytosis MODERATE=16-30 cells (100X) (0-5/hpf); Mean Corpuscular HGB CONC 30.3 g/dL (32.0-36.0); Mean Corpuscular Hemoglobin 35.7 pg (27.0-31.0); Mean Platelet Volume 10.6 fL (7.4-10.4); Metamyelocyte 1 % (0-0); Monocytes 11 % (0-10); Neutrophil 65 % (42-75); Platelet Count 137 thou/uL (130-400); Platelet Morphology Comment Appears Adequate; Polychromasia MODERATE = 3-4 cells (100X) (0-2/hpf); RBC Distribution Width 16.1 % (11.5-14.5); Reactive Lymphocytes 1 % (0-10); Red Blood Cell (RBC) Count 2.51 mill/uL (4.20-5.40); Target Cells MODERATE= 6-15 cells (100X) (0-1/hpf)
[2021-10-17] MEDS: Lorazepam 0.5 MG TAB PO SCH (21:18)
[2021-10-18] MEDS: Piperacillin/Tazobactam 3.375 GM in Sodium Chloride 0.9% 100 ML IVPB SCH ×3 (05:29→22:53)
[2021-10-18 05:44] LABS: ALT (SGPT) 59 U/L (8-55); AST (SGOT) 130 U/L (5-34); Albumin 2.5 g/dL (3.4-4.8); Alkaline Phosphatase 2127 U/L (40-110); Anion Gap 19 mmol/L (10-20); BUN (Urea Nitrogen) 36 mg/dL (9.8-20.1); Bilirubin, Total 3.9 mg/dL (0.2-1.2); Calc. Creatinine Clearance 33 mL/min (70-130); Calcium 8.5 mg/dL (7.8-10.44); Carbon Dioxide 23 mmol/L (23-31); Chloride 105 mmol/L (98-107); Globulin 2.8 g/dL (2.4-3.5); Glucose 88 mg/dL (80-115); Potassium 4.6 mmol/L (3.5-5.1); Protein, Total 5.3 g/dL (5.8-8.1); Sodium 142 mmol/L (136-145)
[2021-10-18 05:46] LABS: Hemoglobin 9.4 g/dL (12.0-16.0); Mean Corpuscular HGB CONC 31.2 g/dL (32.0-36.0); Mean Corpuscular Hemoglobin 36.4 pg (27.0-31.0); Mean Platelet Volume 10.7 fL (7.4-10.4); Platelet Count 171 thou/uL (130-400); RBC Distribution Width 16.4 % (11.5-14.5); Red Blood Cell (RBC) Count 2.59 mill/uL (4.20-5.40); White Blood Cell (WBC) Count 15.1 thou/uL (4.8-10.8)
[2021-10-18 05:48] LABS: Band 6 % (5-11); Eosinophils 2 % (0-10); Lymphocytes 6 % (21-51); MDiff Complete? YES; Macrocytosis MODERATE=16-30 cells (100X) (0-5/hpf); Monocytes 18 % (0-10); Neutrophil 67 % (42-75); Reactive Lymphocytes 1 % (0-10); Target Cells SLIGHT = 2-5 cells (100X) (0-1/hpf)
[2021-10-18] MEDS: Heparin 5,000 UNITS/ML VIAL SC SCH ×3 (08:33→21:14)
[2021-10-18] MEDS: HYDROcodone/Acetaminophen 10/325 mg Tablet PO PRN ×2 (08:34→17:46)
[2021-10-18] MEDS: Lorazepam 0.5 MG TAB PO SCH (21:18)
[2021-10-19] MEDS: Piperacillin/Tazobactam 3.375 GM in Sodium Chloride 0.9% 100 ML IVPB SCH ×3 (06:01→21:24)
[2021-10-19 06:31] LABS: Hemoglobin 9.3 g/dL (12.0-16.0); Mean Corpuscular HGB CONC 31.5 g/dL (32.0-36.0); Mean Corpuscular Hemoglobin 36.3 pg (27.0-31.0); Mean Platelet Volume 10.8 fL (7.4-10.4); Platelet Count 157 thou/uL (130-400); RBC Distribution Width 16.5 % (11.5-14.5); Red Blood Cell (RBC) Count 2.56 mill/uL (4.20-5.40); White Blood Cell (WBC) Count 13.7 thou/uL (4.8-10.8)
[2021-10-19 06:36] LABS: Anion Gap 16 mmol/L (10-20); BUN (Urea Nitrogen) 40 mg/dL (9.8-20.1); Calc. Creatinine Clearance 26 mL/min (70-130); Calcium 8.3 mg/dL (7.8-10.44); Carbon Dioxide 26 mmol/L (23-31); Chloride 102 mmol/L (98-107); Glucose 94 mg/dL (80-115); Potassium 4.1 mmol/L (3.5-5.1); Sodium 140 mmol/L (136-145)
[2021-10-19 08:31] LABS: Band 8 % (5-11); Lymphocytes 7 % (21-51); MDiff Complete? YES; Macrocytosis MARKED = >30 cells (100X) (0-5/hpf); Monocytes 16 % (0-10); Neutrophil 67 % (42-75); Nucleated RBC 1 % (0); Polychromasia SLIGHT = 2-3 cells (100X) (0-2/hpf); Reactive Lymphocytes 2 % (0-10); Schistocytes SLIGHT = 2-5 cells (100X) (0-1/hpf); Target Cells MODERATE= 6-15 cells (100X) (0-1/hpf)
[2021-10-19] MEDS: HYDROcodone/Acetaminophen 10/325 mg Tablet PO PRN ×2 (09:39→15:15)
[2021-10-19] MEDS: Heparin 5,000 UNITS/ML VIAL SC SCH ×3 (09:43→20:56)
[2021-10-19] MEDS: Lorazepam 0.5 MG TAB PO SCH (21:05)
[2021-10-20] MEDS: Heparin 5,000 UNITS/ML VIAL SC SCH ×3 (09:10→20:29)
[2021-10-20 09:23] LABS: Hemoglobin 9.3 g/dL (12.0-16.0); Mean Corpuscular HGB CONC 30.8 g/dL (32.0-36.0); Mean Corpuscular Hemoglobin 35.4 pg (27.0-31.0); Mean Platelet Volume 10.3 fL (7.4-10.4); Platelet Count 151 thou/uL (130-400); RBC Distribution Width 16.6 % (11.5-14.5); Red Blood Cell (RBC) Count 2.64 mill/uL (4.20-5.40); White Blood Cell (WBC) Count 15.2 thou/uL (4.8-10.8)
[2021-10-20 09:33] LABS: Anion Gap 20 mmol/L (10-20); BUN (Urea Nitrogen) 47 mg/dL (9.8-20.1); Calc. Creatinine Clearance 24 mL/min (70-130); Calcium 8.3 mg/dL (7.8-10.44); Carbon Dioxide 22 mmol/L (23-31); Chloride 108 mmol/L (98-107); Glucose 99 mg/dL (80-115); Potassium 5.5 mmol/L (3.5-5.1); Sodium 144 mmol/L (136-145)
[2021-10-20 11:51] LABS: Band 11 % (5-11); Elliptocytes SLIGHT = 2-5 cells (100X) (0-1/hpf); Large Platelets SLIGHT; Lymphocytes 3 % (21-51); MDiff Complete? YES; Macrocytosis MODERATE=16-30 cells (100X) (0-5/hpf); Metamyelocyte 1 % (0-0); Monocytes 6 % (0-10); Neutrophil 64 % (42-75); Platelet Morphology Comment Appears Adequate; Polychromasia SLIGHT = 2-3 cells (100X) (0-2/hpf); RBC Morphology Normal; Reactive Lymphocytes 15 % (0-10); Target Cells SLIGHT = 2-5 cells (100X) (0-1/hpf)
[2021-10-20] MEDS: HYDROcodone/Acetaminophen 10/325 mg Tablet PO PRN (17:27)
[2021-10-20] MEDS: Atorvastatin Calcium 10 MG TAB PO SCH (20:26)
[2021-10-20] MEDS: Lorazepam 0.5 MG TAB PO SCH (20:26)
[2021-10-21] MEDS: Heparin 5,000 UNITS/ML VIAL SC SCH ×2 (08:22→20:50)
[2021-10-21] MEDS: HYDROcodone/Acetaminophen 10/325 mg Tablet PO PRN (08:36)
[2021-10-21] MEDS: EPOETIN ALFA-EPBX (ESRD) 10,000 UNIT/ML VIAL SC SCH (10:00)
[2021-10-21 17:15] LABS: Anion Gap 17 mmol/L (10-20); BUN (Urea Nitrogen) 51 mg/dL (9.8-20.1); Calc. Creatinine Clearance 19 mL/min (70-130); Calcium 8.3 mg/dL (7.8-10.44); Carbon Dioxide 26 mmol/L (23-31); Chloride 105 mmol/L (98-107); Glucose 89 mg/dL (80-115); Potassium 4.2 mmol/L (3.5-5.1); Sodium 144 mmol/L (136-145)
[2021-10-21] MEDS ORDERED: Albumin 25% 25 GM/100 ML BOT IVPB SCH (18:00)
[2021-10-21] MEDS: Lorazepam 0.5 MG TAB PO SCH (20:50)
[2021-10-21] MEDS: Atorvastatin Calcium 10 MG TAB PO SCH (20:50)
[2021-10-22] MEDS: Heparin 5,000 UNITS/ML VIAL SC SCH ×4 (08:34→21:08)
[2021-10-22] MEDS: Lorazepam 0.5 MG TAB PO SCH (21:08)
[2021-10-22] MEDS: Atorvastatin Calcium 10 MG TAB PO SCH (21:08)
[2021-10-23 04:33] LABS: Anion Gap 20 mmol/L (10-20); BUN (Urea Nitrogen) 58 mg/dL (9.8-20.1); Calc. Creatinine Clearance 18 mL/min (70-130); Calcium 8.3 mg/dL (7.8-10.44); Carbon Dioxide 24 mmol/L (23-31); Chloride 103 mmol/L (98-107); Glucose 85 mg/dL (80-115); Potassium 3.6 mmol/L (3.5-5.1); Sodium 143 mmol/L (136-145)
[2021-10-23 05:07] LABS: Band 5 % (5-11); Lymphocytes 3 % (21-51); MDiff Complete? YES; Macrocytosis MODERATE=16-30 cells (100X) (0-5/hpf); Mean Corpuscular HGB CONC 32.9 g/dL (32.0-36.0); Mean Corpuscular Hemoglobin 35.8 pg (27.0-31.0); Mean Platelet Volume 8.8 fL (7.4-10.4); Metamyelocyte 1 % (0-0); Monocytes 12 % (0-10); Myelocyte 1 % (0-0); Neutrophil 78 % (42-75); Platelet Count 257 thou/uL (130-400); Platelet Morphology Comment Appears Adequate; Polychromasia SLIGHT = 2-3 cells (100X) (0-2/hpf); RBC Distribution Width 23.8 % (11.5-14.5); Red Blood Cell (RBC) Count 2.51 mill/uL (4.20-5.40); Target Cells MODERATE= 6-15 cells (100X) (0-1/hpf); White Blood Cell (WBC) Count 18.2 thou/uL (4.8-10.8)
[2021-10-23] MEDS: Heparin 5,000 UNITS/ML VIAL SC SCH ×3 (08:15→22:17)
[2021-10-23 14:23] LABS: ALT (SGPT) 28 U/L (8-55); AST (SGOT) 94 U/L (5-34); Albumin 2.5 g/dL (3.4-4.8); Alkaline Phosphatase 1960 U/L (40-110); Bilirubin, Direct 4.2 mg/dL (0.1-0.3); Bilirubin, Total 5.3 mg/dL (0.2-1.2); Protein, Total 5.2 g/dL (5.8-8.1)
[2021-10-23] MEDS: Atorvastatin Calcium 10 MG TAB PO SCH (22:18)
[2021-10-23] MEDS: Lorazepam 0.5 MG TAB PO SCH (22:18)
[2021-10-24] MEDS: Heparin 5,000 UNITS/ML VIAL SC SCH ×3 (08:31→21:06)
[2021-10-24 10:10] LABS: Anion Gap 20 mmol/L (10-20); BUN (Urea Nitrogen) 68 mg/dL (9.8-20.1); Calc. Creatinine Clearance 14 mL/min (70-130); Calcium 8.1 mg/dL (7.8-10.44); Carbon Dioxide 21 mmol/L (23-31); Chloride 106 mmol/L (98-107); Glucose 78 mg/dL (80-115); Potassium 4.1 mmol/L (3.5-5.1); Sodium 143 mmol/L (136-145)
[2021-10-24] MEDS ORDERED: Morphine 4 MG/ML VIAL SLOW IVP PRN (11:01)
[2021-10-24] MEDS: HYDROcodone/Acetaminophen 5/325 mg Tablet PO PRN (12:53)
[2021-10-24] MEDS: Dextrose 5 %-0.45 % NaCl 1,000 ML IV SCH ×2 (15:17→21:06)
[2021-10-24] MEDS: Atorvastatin Calcium 10 MG TAB PO SCH (21:05)
[2021-10-24] MEDS: Lorazepam 0.5 MG TAB PO SCH (21:05)
[2021-10-25 07:05] LABS: Anion Gap 17 mmol/L (10-20); BUN (Urea Nitrogen) 69 mg/dL (9.8-20.1); Calc. Creatinine Clearance 13 mL/min (70-130); Calcium 7.7 mg/dL (7.8-10.44); Carbon Dioxide 22 mmol/L (23-31); Chloride 105 mmol/L (98-107); Glucose 135 mg/dL (80-115); Potassium 3.8 mmol/L (3.5-5.1); Sodium 140 mmol/L (136-145)
[2021-10-25] MEDS: Dextrose 5 %-0.45 % NaCl 1,000 ML IV SCH ×3 (07:11→23:18)
[2021-10-25] MEDS: Heparin 5,000 UNITS/ML VIAL SC SCH ×3 (08:37→21:03)
[2021-10-25] MEDS: HYDROcodone/Acetaminophen 5/325 mg Tablet PO PRN (16:14)
[2021-10-25] MEDS ORDERED: Lorazepam 0.5 MG TAB PO SCH (21:00)
[2021-10-25] MEDS: Atorvastatin Calcium 10 MG TAB PO SCH (21:03)
[2021-10-25] MEDS: Pantoprazole 40 MG VIAL IVP SCH (21:04)
[2021-10-26 07:57] VITALS: TEMP 97.4
[2021-10-26] MEDS: Heparin 5,000 UNITS/ML VIAL SC SCH ×2 (08:43→18:11)
[2021-10-26] MEDS: Pantoprazole 40 MG VIAL IVP SCH (08:57)
[2021-10-26] MEDS: Dextrose 5 %-0.45 % NaCl 1,000 ML IV SCH (14:17)
[2021-10-26 18:05] VITALS: BP 93/61
== END 2021-10-26 20:12 | disposition hospice, home (50) | DRG 178 ==
LOC: ERS 10:24 → ERHOLD 16:26 → 2NO 10-13 18:32 → T4-B 10-15 20:27
PROVIDERS: ADMIT Family Medicine; ATTEND Internal Medicine
PROC: 8E0ZXY6 Isolation (ICD-10-PCS; principal; 2021-10-12)
DX: U07.1 COVID-19 (principal); N17.9 Acute kidney failure, unspecified; J96.11 Chronic respiratory failure with hypoxia; Z51.5 Encounter for palliative care; Z66 Do not resuscitate; C78.7 Secondary malignant neoplasm of liver and intrahepatic bile duct; C78.00 Secondary malignant neoplasm of unspecified lung; C79.51 Secondary malignant neoplasm of bone; R18.8 Other ascites; D64.9 Anemia, unspecified; D69.59 Other secondary thrombocytopenia; E78.5 Hyperlipidemia, unspecified; K21.9 Gastro-esophageal reflux disease without esophagitis; R74.8 Abnormal levels of other serum enzymes; C50.919 Malignant neoplasm of unspecified site of unspecified female breast; J44.9 Chronic obstructive pulmonary disease, unspecified; E83.51 Hypocalcemia; I12.9 Hypertensive chronic kidney disease with stage 1 through stage 4 chronic kidney disease, or unspecified chronic kidney disease; N18.9 Chronic kidney disease, unspecified; F17.210 Nicotine dependence, cigarettes, uncomplicated; D63.0 Anemia in neoplastic disease; R63.0 Anorexia; E88.09 Other disorders of plasma-protein metabolism, not elsewhere classified; E87.6 Hypokalemia; E83.42 Hypomagnesemia; Z99.81 Dependence on supplemental oxygen; Z92.21 Personal history of antineoplastic chemotherapy; Z88.1 Allergy status to other antibiotic agents; Z88.5 Allergy status to narcotic agent; Z79.82 Long term (current) use of aspirin; Z68.26 Body mass index [BMI] 26.0-26.9, adult; Z79.899 Other long term (current) drug therapy; Z98.890 Other specified postprocedural states
CPT/HCPCS: 36415; 71045; 76705; 80048; 80053; 80076; 81001; 82040; 82306; 82550; 82570; 82607; 82728; 82746; 82977; 83540; 83550; 83735; 84100; 84156; 84300; 84484; 84540; 85025; 85379; 86140; 87086; 93005; 94760; 96374; C9113; J1100; J1644; J2543; J3475; J3480; J3490; J7042; J7050; J7120; P9047; Q5105